=== PATIENT | male | born 1955 | race Caucasian/White ===

== ENCOUNTER 2017-04-18 02:59 | Inpatient (IN) | payer MEDICARE ==
[~2017-04-18] VITALS: Ht 175.3 cm; Wt 103.0 kg
[2017-04-18] MEDS ORDERED: AMIO100T4 PO (03:48)
[2017-04-18] MEDS ORDERED: WARF6TAB PO (03:50)
[2017-04-18] MEDS ORDERED: DAPT500V6 INJ (03:51)
[2017-04-18] MEDS ORDERED: [UNRECOGNIZED DRUG - OTHER] (03:51)
[2017-04-18] MEDS ORDERED: DILTIA (03:51)
[2017-04-18] MEDS ORDERED: FURO-93 PO (03:52)
[2017-04-18] MEDS ORDERED: HYDR12.53 PO (03:52)
[2017-04-18] MEDS ORDERED: LISI2.5T PO (03:52)
[2017-04-18] MEDS ORDERED: ALBU8.5H8 INH (03:54)
[2017-04-18] MEDS ORDERED: TEMA30CA6 PO (03:54)
[2017-04-18] MEDS ORDERED: RIFA300C3 PO (03:55)
[2017-04-18] MEDS ORDERED: ALPR-475 PO (03:55)
[2017-04-18] MEDS ORDERED: TIOT18CA INH (03:55)
[2017-04-18 04:10] LABS: BASOPHILS # (AUTO) 0.04 x10^3/uL (0-0.1); BASOPHILS % (AUTO) 0 % (0-1); EOSINOPHILS % (AUTO) 0 % (1-7); LYMPHOCYTES # (AUTO) 1.19 x10^3/uL (1-3.4); LYMPHOCYTES % (AUTO) 10 % (22-44); MD NO; MEAN CORPUSCULAR HEMOGLOBIN 35.2 pg (27.5-34.5); MEAN CORPUSCULAR HGB CONC 33.8 g/dL (33.2-36.2); MEAN CORPUSCULAR VOLUME 104.2 fL (81-97); MEAN PLATELET VOLUME 8.4 fL (7.4-10.4); MONOCYTES # (AUTO) 0.52 x10^3/uL (0.2-0.8); MONOCYTES % (AUTO) 4 % (2-9); NEUTROPHILS # (AUTO) 10.21 x10^3/uL (1.8-6.8); NEUTROPHILS % (AUTO) 85 % (42-75); PLATELET COUNT 255 x10^3/uL (130-400); RED BLOOD COUNT 3.81 x10^6/uL (4.38-5.82); RED CELL DISTRIBUTION WIDTH 15.7 % (9.4-14.8)
[2017-04-18 04:20] LABS: ALBUMIN 3.2 g/dL (3.4-5.0); ANION GAP 7 mmol/L (5-15); CALCIUM 7.4 mg/dL (8.5-10.1); CHLORIDE 100 mmol/L (98-107); CREATININE 2.21 mg/dL (0.7-1.3)
[2017-04-18 04:25] LABS: ALKALINE PHOSPHATASE 139 U/L (45-117); BILIRUBIN,TOTAL 3.5 mg/dL (0.2-1.0); TOTAL PROTEIN 7.1 g/dL (6.4-8.2)
[2017-04-18 04:29] LABS: TROPONIN I 0.717 ng/mL (0.000-0.045)
[2017-04-18 04:37] LABS: ALANINE AMINOTRANSFERASE 2215 U/L (12-78)
[2017-04-18 04:56] VITALS: BP 119/84
[2017-04-18] MEDS ORDERED: ALBUTEROL/IPRATROPIUM 2.5MG/0.5MG, 3 ML NPPB SCH (06:30)
[2017-04-18] MEDS ORDERED: ONDANSETRON 2MG/ML, 2ML IVPush PRN (06:30)
[2017-04-18] MEDS ORDERED: LABETALOL 5MG/ML, 20ML IVPush PRN (06:30)
[2017-04-18] MEDS ORDERED: SODIUM CHLORIDE 0.9% IVPB SCH (06:30)
[2017-04-18] MEDS ORDERED: POLYETHYLENE GLYCOL 17 GM PACKET PO PRN (06:30)
[2017-04-18] MEDS ORDERED: BISACODYL 10 MG SUPP PR PRN (06:30)
[2017-04-18] MEDS ORDERED: DAPTOMYCIN IVPB SCH (06:30)
[2017-04-18 07:22] VITALS: BP 121/82
[2017-04-18 07:28] LABS: FREE T4 (FREE THYROXINE) 1.84 ng/dL (0.76-1.46); THYROID STIMULATING HORMONE 0.248 mIU/L (0.358-3.740)
[2017-04-18] MEDS ORDERED: POTASSIUM CHLORIDE 10 MEQ TABLET.ER ONE (08:05)
[2017-04-18] MEDS: RIFAMPIN 300 MG CAPSULE PO SCH (08:21)
[2017-04-18] MEDS: FUROSEMIDE 20 MG/2 ML IV SCH ×2 (08:21→15:54)
[2017-04-18] MEDS: SENNA/DOCUSATE TABLET PO SCH (08:23)
[2017-04-18] MEDS: TEMAZEPAM 30 MG CAPSULE PO SCH (08:23)
[2017-04-18] MEDS: AMIODARONE 200 MG TABLET PO SCH ×3 (08:23→08:35)
[2017-04-18] MEDS: POTASSIUM CHLORIDE 20 MEQ TAB.ER.PRT PO SCH ×3 (08:23→20:49)
[2017-04-18 08:26] LABS: INTERNATIONAL NORMALIZED RATIO 1.87 (0.93-1.1); PROTHROMBIN TIME 19.2 Seconds (9.6-11.5)
[2017-04-18] MEDS ORDERED: IPRATROPIUM 0.5 MG/2.5 ML INHA HHN SCH (09:00)
[2017-04-18] MEDS ORDERED: LISINOPRIL 5 MG TABLET PO SCH (09:00)
[2017-04-18] MEDS ORDERED: DAPTOMYCIN 650 MG in SODIUM CHLORIDE 0.9% 100 ML IVPB SCH ×2 (09:00→10:53)
[2017-04-18 09:49] LABS: TROPONIN I 0.529 ng/mL (0.000-0.045)
[2017-04-18] MEDS: PIPERACILLIN/TAZO 2.25 GM in SODIUM CHLORIDE 0.9% 50 ML IV SCH ×3 (09:53→20:49)
[2017-04-18] MEDS: ALBUTEROL/IPRATROPIUM 2.5MG/0.5MG, 3 ML NPPB SCH ×2 (10:00→19:50)
[2017-04-18 10:07] LABS: MICROSCOPIC AUTO
[2017-04-18 10:13] LABS: CULTURE INDICATED? YES
[2017-04-18 14:13] VITALS: BP 126/76
[2017-04-18] MEDS: SODIUM CHLORIDE 0.9% 1,000 ML IV SCH (14:49)
[2017-04-18 16:05] LABS: ANION GAP 8 mmol/L (5-15); CALCIUM 7.8 mg/dL (8.5-10.1); CHLORIDE 95 mmol/L (98-107)
[2017-04-18 16:14] LABS: ALANINE AMINOTRANSFERASE 1662 U/L (12-78); ALKALINE PHOSPHATASE 126 U/L (45-117); BILIRUBIN,TOTAL 4.7 mg/dL (0.2-1.0); CREATININE 1.66 mg/dL (0.7-1.3); TOTAL PROTEIN 6.8 g/dL (6.4-8.2); TROPONIN I 0.442 ng/mL (0.000-0.045)
[2017-04-18] MEDS ORDERED: LORazepam 2 MG/ML, 1ML IV PRN ×5 (17:00)
[2017-04-18] MEDS ORDERED: LORazepam 0.5MG TABLET PO PRN (17:00)
[2017-04-18] MEDS ORDERED: LORazepam 1MG TABLET PO PRN ×4 (17:00)
[2017-04-18] MEDS ORDERED: WARFARIN 7.5 MG TABLET PO-COUM ONE (18:00)
[2017-04-18 19:00] VITALS: BP 102/73
[2017-04-18] MEDS ORDERED: ALBUTEROL SULFATE 2.5 MG/3 ML ONE (19:45)
[2017-04-18] MEDS: PIPERACILLIN/TAZO/PMX 4.5GM 100 ML IV SCH (23:00)
[2017-04-19 01:10] VITALS: BP 104/64
[2017-04-19] MEDS: SODIUM CHLORIDE 0.9% 1,000 ML IV SCH ×3 (03:00→16:49)
[2017-04-19] MEDS ORDERED: LEVOTHYROXINE 50 MCG TABLET PO SCH (06:00)
[2017-04-19 06:13] LABS: BASOPHILS # (AUTO) 0.03 x10^3/uL (0-0.1); BASOPHILS % (AUTO) 1 % (0-1); EOSINOPHILS # (AUTO) 0.04 x10^3/uL (0-0.4); EOSINOPHILS % (AUTO) 1 % (1-7); LYMPHOCYTES % (AUTO) 23 % (22-44); MD NO; MEAN CORPUSCULAR HEMOGLOBIN 34.7 pg (27.5-34.5); MEAN CORPUSCULAR HGB CONC 33.5 g/dL (33.2-36.2); MEAN CORPUSCULAR VOLUME 103.7 fL (81-97); MEAN PLATELET VOLUME 7.8 fL (7.4-10.4); MONOCYTES # (AUTO) 0.32 x10^3/uL (0.2-0.8); MONOCYTES % (AUTO) 5 % (2-9); NEUTROPHILS # (AUTO) 5.01 x10^3/uL (1.8-6.8); NEUTROPHILS % (AUTO) 72 % (42-75); PLATELET COUNT 211 x10^3/uL (130-400); RED BLOOD COUNT 3.83 x10^6/uL (4.38-5.82); RED CELL DISTRIBUTION WIDTH 15.7 % (9.4-14.8)
[2017-04-19 06:14] LABS: INTERNATIONAL NORMALIZED RATIO 1.56 (0.93-1.1); PROTHROMBIN TIME 16.1 Seconds (9.6-11.5)
[2017-04-19 06:21] LABS: ALBUMIN 2.8 g/dL (3.4-5.0); CALCIUM 8.1 mg/dL (8.5-10.1); CHLORIDE 97 mmol/L (98-107); GAMMA GLUTAMYL TRANSPEPTIDASE 162 U/L (15-85)
[2017-04-19 06:30] LABS: ALANINE AMINOTRANSFERASE 1227 U/L (12-78); ALKALINE PHOSPHATASE 106 U/L (45-117); ANION GAP 7 mmol/L (5-15); BILIRUBIN,TOTAL 3.3 mg/dL (0.2-1.0); CHOL/HDL RATIO 10.3; CHOLESTEROL, TOTAL 103 mg/dL (140-239); CREATININE 1.22 mg/dL (0.7-1.3); HDL CHOL % 10 % (26-37); HDL CHOLESTEROL (DIRECT) 10 mg/dL (40-60); LDL CHOLESTEROL,CALCULATED 66 mg/dL (54-169); TOTAL PROTEIN 6.3 g/dL (6.4-8.2); TRIGLYCERIDES 135 mg/dL (50-200); VLDL CHOLESTEROL 27 mg/dL (0-25)
[2017-04-19 06:31] LABS: LDL/HDL RATIO 6.6 (0.5-3.0)
[2017-04-19] MEDS: ALBUTEROL/IPRATROPIUM 2.5MG/0.5MG, 3 ML NPPB SCH ×2 (07:23→19:42)
[2017-04-19 08:09] VITALS: BP 115/77
[2017-04-19] MEDS: SENNA/DOCUSATE TABLET PO SCH (09:00)
[2017-04-19] MEDS: POTASSIUM CHLORIDE 20 MEQ TAB.ER.PRT PO SCH ×3 (09:42→17:45)
[2017-04-19] MEDS: TEMAZEPAM 30 MG CAPSULE PO SCH (09:42)
[2017-04-19] MEDS: AMIODARONE 200 MG TABLET PO SCH (09:42)
[2017-04-19] MEDS: PIPERACILLIN/TAZO/PMX 4.5GM 100 ML IV SCH ×2 (09:43→16:49)
[2017-04-19] MEDS: RIFAMPIN 300 MG CAPSULE PO SCH (09:43)
[2017-04-19 13:57] VITALS: BP 108/70
[2017-04-19] MEDS ORDERED: WARFARIN 10 MG TABLET PO-COUM ONE (18:00)
[2017-04-19 18:33] LABS: ANA SCREEN NEGATIVE (Negative); ANTI-NUCLEAR ANTIBODY PATTERN CYTOPLASMIC
[2017-04-19 19:05] VITALS: BP 121/78
[2017-04-20] MEDS: PIPERACILLIN/TAZO/PMX 4.5GM 100 ML IV SCH ×3 (00:53→18:10)
[2017-04-20 01:27] VITALS: BP 113/73
[2017-04-20 05:53] LABS: BASOPHILS # (AUTO) 0.04 x10^3/uL (0-0.1); BASOPHILS % (AUTO) 1 % (0-1); EOSINOPHILS # (AUTO) 0.17 x10^3/uL (0-0.4); EOSINOPHILS % (AUTO) 3 % (1-7); LYMPHOCYTES # (AUTO) 1.42 x10^3/uL (1-3.4); LYMPHOCYTES % (AUTO) 24 % (22-44); MD NO; MEAN CORPUSCULAR HEMOGLOBIN 34.9 pg (27.5-34.5); MEAN CORPUSCULAR HGB CONC 33.5 g/dL (33.2-36.2); MEAN CORPUSCULAR VOLUME 104.1 fL (81-97); MEAN PLATELET VOLUME 8.3 fL (7.4-10.4); MONOCYTES # (AUTO) 0.39 x10^3/uL (0.2-0.8); MONOCYTES % (AUTO) 7 % (2-9); NEUTROPHILS # (AUTO) 3.98 x10^3/uL (1.8-6.8); NEUTROPHILS % (AUTO) 66 % (42-75); PLATELET COUNT 181 x10^3/uL (130-400); RED BLOOD COUNT 3.62 x10^6/uL (4.38-5.82)
[2017-04-20 06:06] LABS: ANION GAP 4 mmol/L (5-15); CALCIUM 8.3 mg/dL (8.5-10.1); CHLORIDE 102 mmol/L (98-107)
[2017-04-20] MEDS: ALBUTEROL/IPRATROPIUM 2.5MG/0.5MG, 3 ML NPPB SCH ×2 (07:45→20:55)
[2017-04-20] MEDS ORDERED: REGADENOSON 0.4 MG/5 ML SYRINGE ONE (08:38)
[2017-04-20 08:40] LABS: INTERNATIONAL NORMALIZED RATIO 1.63 (0.93-1.1); PROTHROMBIN TIME 16.8 Seconds (9.6-11.5)
[2017-04-20 10:15] VITALS: BP 132/99
[2017-04-20 10:35] LABS: ALBUMIN 2.5 g/dL (3.4-5.0)
[2017-04-20 10:38] LABS: BILIRUBIN, DIRECT 1.4 mg/dL (0.1-0.2); BILIRUBIN,INDIRECT 0.8 mg/dL (0.0-2.0); BILIRUBIN,TOTAL 2.2 mg/dL (0.2-1.0); TOTAL PROTEIN 5.8 g/dL (6.4-8.2)
[2017-04-20] MEDS: AMIODARONE 200 MG TABLET PO SCH (10:38)
[2017-04-20] MEDS: SENNA/DOCUSATE TABLET PO SCH (10:38)
[2017-04-20] MEDS: RIFAMPIN 300 MG CAPSULE PO SCH (10:38)
[2017-04-20] MEDS: TEMAZEPAM 30 MG CAPSULE PO SCH ×2 (10:39→20:19)
[2017-04-20] MEDS ORDERED: MAALOX/HYOSCYAMINE/LIDOCAINE 45 ML BTL PO ONE (13:00)
[2017-04-20] MEDS: SUCRALFATE 1 GM/10 ML UDC PO SCH ×3 (13:33→20:20)
[2017-04-20] MEDS: PANTOPRAZOLE 40 MG IV IVPush SCH (13:34)
[2017-04-20] MEDS: ERGOCALCIFEROL 50,000 UNIT CAPSULE PO SCH (13:34)
[2017-04-20 15:23] VITALS: BP 145/104
[2017-04-20] MEDS ORDERED: MORPHINE SULFATE 4 MG/ML, 1ML ONE (15:28)
[2017-04-20] MEDS: morphine SULFATE 10 MG/ML, 1ML IVPush PRN ×3 (15:33→22:18)
[2017-04-20] MEDS ORDERED: WARFARIN 3 MG TABLET PO-COUM ONE (18:00)
[2017-04-20 18:53] VITALS: BP 134/95
[2017-04-21] MEDS: PIPERACILLIN/TAZO/PMX 4.5GM 100 ML IV SCH ×5 (00:49→23:15)
[2017-04-21] MEDS: PANTOPRAZOLE 40 MG IV IVPush SCH ×2 (00:49→13:35)
[2017-04-21 01:14] VITALS: BP 113/75
[2017-04-21] MEDS: morphine SULFATE 10 MG/ML, 1ML IVPush PRN ×6 (02:32→23:23)
[2017-04-21 06:06] LABS: INTERNATIONAL NORMALIZED RATIO 2.01 (0.93-1.1); PROTHROMBIN TIME 20.6 Seconds (9.6-11.5)
[2017-04-21 07:04] VITALS: BP 125/87
[2017-04-21] MEDS: SUCRALFATE 1 GM/10 ML UDC PO SCH ×4 (08:20→20:15)
[2017-04-21] MEDS: SENNA/DOCUSATE TABLET PO SCH (08:20)
[2017-04-21] MEDS: RIFAMPIN 300 MG CAPSULE PO SCH (08:20)
[2017-04-21] MEDS: AMIODARONE 200 MG TABLET PO SCH (08:20)
[2017-04-21 10:18] LABS: ALANINE AMINOTRANSFERASE 592 U/L (12-78); ALBUMIN 2.5 g/dL (3.4-5.0); ANION GAP 6 mmol/L (5-15); CALCIUM 8.3 mg/dL (8.5-10.1); CHLORIDE 103 mmol/L (98-107); CREATININE 1.05 mg/dL (0.7-1.3)
[2017-04-21] MEDS: ALBUTEROL/IPRATROPIUM 2.5MG/0.5MG, 3 ML NPPB SCH ×2 (10:18→21:00)
[2017-04-21 10:20] LABS: ALKALINE PHOSPHATASE 80 U/L (45-117); BILIRUBIN,TOTAL 1.6 mg/dL (0.2-1.0); TOTAL PROTEIN 5.7 g/dL (6.4-8.2)
[2017-04-21] MEDS ORDERED: MORPHINE SULFATE 4 MG/ML, 1ML ONE (15:54)
[2017-04-21 16:56] VITALS: BP 141/94
[2017-04-21] MEDS ORDERED: WARFARIN 10 MG TABLET PO-COUM ONE (18:00)
[2017-04-21 18:46] VITALS: BP 132/79
[2017-04-21] MEDS: NYSTATIN 500,000 UNITS/5 ML UDC PO SCH (20:15)
[2017-04-21] MEDS: TEMAZEPAM 30 MG CAPSULE PO SCH (20:16)
[2017-04-22 00:49] VITALS: BP 136/87
[2017-04-22] MEDS: PANTOPRAZOLE 40 MG IV IVPush SCH ×2 (02:21→12:50)
[2017-04-22] MEDS: morphine SULFATE 10 MG/ML, 1ML IVPush PRN ×7 (02:21→21:10)
[2017-04-22] MEDS: PIPERACILLIN/TAZO/PMX 4.5GM 100 ML IV SCH ×4 (05:03→23:20)
[2017-04-22] MEDS: NYSTATIN 500,000 UNITS/5 ML UDC PO SCH ×4 (05:03→21:10)
[2017-04-22 05:43] LABS: INTERNATIONAL NORMALIZED RATIO 2.57 (0.93-1.1); PROTHROMBIN TIME 26.2 Seconds (9.6-11.5)
[2017-04-22 05:46] LABS: BASOPHILS # (AUTO) 0.04 x10^3/uL (0-0.1); BASOPHILS % (AUTO) 1 % (0-1); EOSINOPHILS # (AUTO) 0.28 x10^3/uL (0-0.4); EOSINOPHILS % (AUTO) 5 % (1-7); LYMPHOCYTES # (AUTO) 1.35 x10^3/uL (1-3.4); LYMPHOCYTES % (AUTO) 25 % (22-44); MD NO; MEAN CORPUSCULAR HEMOGLOBIN 34.7 pg (27.5-34.5); MEAN CORPUSCULAR HGB CONC 33.6 g/dL (33.2-36.2); MEAN CORPUSCULAR VOLUME 103.4 fL (81-97); MEAN PLATELET VOLUME 8.6 fL (7.4-10.4); MONOCYTES # (AUTO) 0.43 x10^3/uL (0.2-0.8); MONOCYTES % (AUTO) 8 % (2-9); NEUTROPHILS # (AUTO) 3.39 x10^3/uL (1.8-6.8); NEUTROPHILS % (AUTO) 62 % (42-75); PLATELET COUNT 173 x10^3/uL (130-400); RED BLOOD COUNT 3.86 x10^6/uL (4.38-5.82); RED CELL DISTRIBUTION WIDTH 15.8 % (9.4-14.8)
[2017-04-22 05:55] LABS: CHLORIDE 103 mmol/L (98-107)
[2017-04-22 06:18] LABS: ALANINE AMINOTRANSFERASE 486 U/L (12-78); ALBUMIN 2.8 g/dL (3.4-5.0); ALKALINE PHOSPHATASE 85 U/L (45-117); ANION GAP 10 mmol/L (5-15); BILIRUBIN,TOTAL 1.6 mg/dL (0.2-1.0); CALCIUM 8.6 mg/dL (8.5-10.1); TOTAL PROTEIN 6.6 g/dL (6.4-8.2)
[2017-04-22 08:30] VITALS: BP 135/96
[2017-04-22] MEDS: SENNA/DOCUSATE TABLET PO SCH (09:00)
[2017-04-22] MEDS: RIFAMPIN 300 MG CAPSULE PO SCH (09:12)
[2017-04-22] MEDS: AMIODARONE 200 MG TABLET PO SCH (09:12)
[2017-04-22] MEDS: SUCRALFATE 1 GM/10 ML UDC PO SCH ×4 (09:12→21:10)
[2017-04-22] MEDS: ALBUTEROL/IPRATROPIUM 2.5MG/0.5MG, 3 ML NPPB SCH ×2 (09:24→21:00)
[2017-04-22 14:30] VITALS: BP 146/90
[2017-04-22] MEDS ORDERED: PHYTONADIONE 10 MG/ML, 1ML SQ ONE (14:30)
[2017-04-22] MEDS ORDERED: PHYTONADIONE 10 MG/ML, 1ML IM ONE (14:30)
[2017-04-22] MEDS ORDERED: WARFARIN 7.5 MG TABLET PO-COUM ONE (18:00)
[2017-04-22 19:43] VITALS: BP 129/86
[2017-04-22] MEDS: PANTOPROZOLE 40MG TABLET PO SCH (21:10)
[2017-04-22] MEDS: TEMAZEPAM 30 MG CAPSULE PO SCH (21:10)
[2017-04-23] MEDS: morphine SULFATE 10 MG/ML, 1ML IVPush PRN ×7 (00:17→22:06)
[2017-04-23 01:28] VITALS: BP 138/81
[2017-04-23] MEDS: PIPERACILLIN/TAZO/PMX 4.5GM 100 ML IV SCH ×3 (04:58→16:55)
[2017-04-23] MEDS: NYSTATIN 500,000 UNITS/5 ML UDC PO SCH ×4 (05:00→22:05)
[2017-04-23 05:30] LABS: CHLORIDE 107 mmol/L (98-107)
[2017-04-23 05:38] LABS: ALANINE AMINOTRANSFERASE 372 U/L (12-78); ALBUMIN 2.9 g/dL (3.4-5.0); ALKALINE PHOSPHATASE 82 U/L (45-117); ANION GAP 8 mmol/L (5-15); BILIRUBIN,TOTAL 2.3 mg/dL (0.2-1.0); CALCIUM 8.4 mg/dL (8.5-10.1); CREATININE 0.97 mg/dL (0.7-1.3); TOTAL PROTEIN 6.7 g/dL (6.4-8.2)
[2017-04-23 05:41] LABS: INTERNATIONAL NORMALIZED RATIO 1.61 (0.93-1.1); PROTHROMBIN TIME 16.6 Seconds (9.6-11.5)
[2017-04-23] MEDS: SUCRALFATE 1 GM/10 ML UDC PO SCH ×4 (07:00→22:05)
[2017-04-23 07:04] VITALS: BP 139/101
[2017-04-23] MEDS: ALBUTEROL/IPRATROPIUM 2.5MG/0.5MG, 3 ML NPPB SCH ×2 (08:12→20:44)
[2017-04-23] MEDS: PANTOPROZOLE 40MG TABLET PO SCH ×2 (09:00→22:06)
[2017-04-23] MEDS: AMIODARONE 200 MG TABLET PO SCH (09:00)
[2017-04-23] MEDS: RIFAMPIN 300 MG CAPSULE PO SCH (09:00)
[2017-04-23] MEDS: SENNA/DOCUSATE TABLET PO SCH (09:00)
[2017-04-23] MEDS ORDERED: maalox/diphenh/lido/sucralfate 5 ML PO PRN (11:30)
[2017-04-23 14:30] VITALS: BP 120/69
[2017-04-23 19:53] VITALS: BP 132/90
[2017-04-23] MEDS: GUAIFENESIN/DM 200-20MG, 10ML UDC PO PRN (22:05)
[2017-04-23] MEDS: TEMAZEPAM 30 MG CAPSULE PO SCH (22:06)
[2017-04-24] MEDS: PIPERACILLIN/TAZO/PMX 4.5GM 100 ML IV SCH ×5 (00:04→23:27)
[2017-04-24 01:24] VITALS: BP 144/94
[2017-04-24] MEDS: morphine SULFATE 10 MG/ML, 1ML IVPush PRN ×6 (02:16→21:37)
[2017-04-24 05:00] LABS: INTERNATIONAL NORMALIZED RATIO 1.16 (0.93-1.1)
[2017-04-24] MEDS: NYSTATIN 500,000 UNITS/5 ML UDC PO SCH ×4 (05:58→20:00)
[2017-04-24 06:43] VITALS: BP 124/98
[2017-04-24] MEDS ORDERED: MIDAZOLAM 1 MG/ML, 2ML ONE (08:38)
[2017-04-24] MEDS ORDERED: PROPOFOL 50 ML ONE (08:38)
[2017-04-24] MEDS ORDERED: KETAMINE 10 MG/ML, 20ML ONE (08:38)
[2017-04-24] MEDS ORDERED: FENTANYL PF 100 MCG/2ML ONE ×2 (08:38→09:24)
[2017-04-24] MEDS: SENNA/DOCUSATE TABLET PO SCH (09:00)
[2017-04-24] MEDS: FENTANYL PF 100 MCG/2ML IV PRN ×2 (09:25→09:30)
[2017-04-24] MEDS ORDERED: hydrALAzine 20 MG/ML, 1ML IV PRN (09:30)
[2017-04-24] MEDS ORDERED: LORazepam 2 MG/ML, 1ML IVPush PRN (09:30)
[2017-04-24] MEDS ORDERED: PROMETHAZINE 25 MG/ML, 1ML IV PRN (09:30)
[2017-04-24] MEDS ORDERED: OXYcodone 5 MG/5 ML ORAL.SOL UDC PO PRN (09:30)
[2017-04-24] MEDS ORDERED: MEPERIDINE/PF 25MG/0.5ML IVPush PRN (09:30)
[2017-04-24] MEDS ORDERED: ONDANSETRON 2MG/ML, 2ML IVPush PRN (09:30)
[2017-04-24] MEDS ORDERED: LABETALOL 5MG/ML, 20ML IV PRN (09:30)
[2017-04-24] MEDS: ALBUTEROL/IPRATROPIUM 2.5MG/0.5MG, 3 ML NPPB SCH ×2 (09:30→19:45)
[2017-04-24] MEDS ORDERED: HYDROmorphone 2 MG/ML, 1ML ONE (09:32)
[2017-04-24] MEDS: HYDROmorphone 1 MG/ML, 1ML IV PRN ×2 (09:34→09:40)
[2017-04-24] MEDS: SUCRALFATE 1 GM/10 ML UDC PO SCH ×4 (11:29→20:00)
[2017-04-24] MEDS: AMIODARONE 200 MG TABLET PO SCH (11:29)
[2017-04-24] MEDS: RIFAMPIN 300 MG CAPSULE PO SCH (11:30)
[2017-04-24] MEDS: PANTOPROZOLE 40MG TABLET PO SCH ×2 (11:43→20:01)
[2017-04-24 12:05] VITALS: BP 149/96
[2017-04-24] MEDS: GUAIFENESIN/DM 200-20MG, 10ML UDC PO PRN ×2 (12:53→20:00)
[2017-04-24 19:29] VITALS: BP_SYST 149; BP_SYST 157; BP_DIAS 109; BP_DIAS 112
[2017-04-24] MEDS: TEMAZEPAM 30 MG CAPSULE PO SCH (20:01)
[2017-04-25] MEDS: morphine SULFATE 10 MG/ML, 1ML IVPush PRN ×8 (01:20→23:35)
[2017-04-25 01:28] VITALS: BP 130/101
[2017-04-25 05:21] LABS: BASOPHILS # (AUTO) 0.07 x10^3/uL (0-0.1); BASOPHILS % (AUTO) 1 % (0-1); EOSINOPHILS # (AUTO) 0.27 x10^3/uL (0-0.4); EOSINOPHILS % (AUTO) 3 % (1-7); LYMPHOCYTES # (AUTO) 1.57 x10^3/uL (1-3.4); LYMPHOCYTES % (AUTO) 20 % (22-44); MD NO; MEAN CORPUSCULAR HEMOGLOBIN 35.3 pg (27.5-34.5); MEAN CORPUSCULAR VOLUME 103.7 fL (81-97); MEAN PLATELET VOLUME 9.3 fL (7.4-10.4); MONOCYTES # (AUTO) 0.61 x10^3/uL (0.2-0.8); MONOCYTES % (AUTO) 8 % (2-9); NEUTROPHILS # (AUTO) 5.51 x10^3/uL (1.8-6.8); NEUTROPHILS % (AUTO) 69 % (42-75); PLATELET COUNT 204 x10^3/uL (130-400); RED CELL DISTRIBUTION WIDTH 15.4 % (9.4-14.8)
[2017-04-25 05:21] LABS: CHLORIDE 108 mmol/L (98-107)
[2017-04-25 05:27] LABS: ALANINE AMINOTRANSFERASE 228 U/L (12-78); ALBUMIN 2.9 g/dL (3.4-5.0); ALKALINE PHOSPHATASE 80 U/L (45-117); ANION GAP 8 mmol/L (5-15); CALCIUM 8.4 mg/dL (8.5-10.1); CREATININE 1.01 mg/dL (0.7-1.3); TOTAL PROTEIN 6.8 g/dL (6.4-8.2)
[2017-04-25 05:45] LABS: INTERNATIONAL NORMALIZED RATIO 1.1 (0.93-1.1); PROTHROMBIN TIME 11.4 Seconds (9.6-11.5)
[2017-04-25] MEDS: NYSTATIN 500,000 UNITS/5 ML UDC PO SCH ×4 (06:20→20:23)
[2017-04-25] MEDS: GUAIFENESIN/DM 200-20MG, 10ML UDC PO PRN ×2 (06:20→20:23)
[2017-04-25] MEDS: PIPERACILLIN/TAZO/PMX 4.5GM 100 ML IV SCH ×4 (06:20→23:35)
[2017-04-25] MEDS: ALBUTEROL/IPRATROPIUM 2.5MG/0.5MG, 3 ML NPPB SCH ×2 (07:25→19:42)
[2017-04-25 07:50] VITALS: BP 130/92
[2017-04-25] MEDS: SUCRALFATE 1 GM/10 ML UDC PO SCH ×4 (07:57→20:23)
[2017-04-25] MEDS: PANTOPROZOLE 40MG TABLET PO SCH ×2 (07:58→20:25)
[2017-04-25] MEDS: AMIODARONE 200 MG TABLET PO SCH (07:58)
[2017-04-25] MEDS: RIFAMPIN 300 MG CAPSULE PO SCH (07:58)
[2017-04-25] MEDS: SENNA/DOCUSATE TABLET PO SCH (07:59)
[2017-04-25] MEDS: LIDOCAINE 2% VISCOUS 15 ML UDC MM PRN ×2 (11:00→17:14)
[2017-04-25 13:03] VITALS: BP 127/96
[2017-04-25] MEDS ORDERED: WARFARIN 7.5 MG TABLET PO-COUM ONE (18:00)
[2017-04-25 20:21] VITALS: BP 155/99
[2017-04-25] MEDS: TEMAZEPAM 30 MG CAPSULE PO SCH (20:24)
[2017-04-26] VITALS (10 sets, daily range): BP systolic 140–165; BP diastolic 92–116
[2017-04-26] MEDS: morphine SULFATE 10 MG/ML, 1ML IVPush PRN ×2 (03:29→06:33)
[2017-04-26] MEDS: hydrALAzine 20 MG/ML, 1ML IVPush PRN ×3 (03:37→21:01)
[2017-04-26 05:39] LABS: INTERNATIONAL NORMALIZED RATIO 1.1 (0.93-1.1); PROTHROMBIN TIME 11.4 Seconds (9.6-11.5)
[2017-04-26] MEDS: PIPERACILLIN/TAZO/PMX 4.5GM 100 ML IV SCH (05:42)
[2017-04-26] MEDS: SUCRALFATE 1 GM/10 ML UDC PO SCH ×4 (06:33→20:59)
[2017-04-26] MEDS: NYSTATIN 500,000 UNITS/5 ML UDC PO SCH ×4 (06:33→20:59)
[2017-04-26] MEDS: LIDOCAINE 2% VISCOUS 15 ML UDC MM PRN (06:39)
[2017-04-26] MEDS: SENNA/DOCUSATE TABLET PO SCH (08:18)
[2017-04-26] MEDS: RIFAMPIN 300 MG CAPSULE PO SCH (08:23)
[2017-04-26] MEDS: PANTOPROZOLE 40MG TABLET PO SCH ×2 (08:23→20:59)
[2017-04-26] MEDS: AMIODARONE 200 MG TABLET PO SCH (08:23)
[2017-04-26] MEDS: ALBUTEROL/IPRATROPIUM 2.5MG/0.5MG, 3 ML NPPB SCH (09:00)
[2017-04-26] MEDS ORDERED: PIPERACILLIN/TAZO/PMX 4.5GM 100 ML IV SCH (11:00)
[2017-04-26] MEDS: WARFARIN MODERAT DOSE PROTOCOL XX SCH (12:00)
[2017-04-26] MEDS ORDERED: SUCR1ORA5 PO (13:54)
[2017-04-26] MEDS ORDERED: LIDO15SO3 MM (13:54)
[2017-04-26] MEDS ORDERED: PANT40TA5 PO (13:54)
[2017-04-26] MEDS: ACETAMINOPHEN 325 MG TABLET PO PRN ×2 (15:18→23:06)
[2017-04-26] MEDS ORDERED: WARFARIN 7.5 MG TABLET PO-COUM ONE (18:00)
[2017-04-26] MEDS: TEMAZEPAM 30 MG CAPSULE PO SCH (20:59)
[2017-04-26] MEDS ORDERED: ALBUTEROL/IPRATROPIUM 2.5MG/0.5MG, 3 ML NPPB PRN (21:00)
[2017-04-27 02:21] VITALS: BP 137/93
[2017-04-27] MEDS: ACETAMINOPHEN 325 MG TABLET PO PRN (05:15)
[2017-04-27] MEDS: NYSTATIN 500,000 UNITS/5 ML UDC PO SCH ×2 (05:15→11:08)
[2017-04-27 06:02] LABS: INTERNATIONAL NORMALIZED RATIO 1.1 (0.93-1.1); PROTHROMBIN TIME 11.4 Seconds (9.6-11.5)
[2017-04-27] MEDS: SENNA/DOCUSATE TABLET PO SCH (09:00)
[2017-04-27] MEDS: SUCRALFATE 1 GM/10 ML UDC PO SCH ×2 (09:21→11:08)
[2017-04-27] MEDS: PANTOPROZOLE 40MG TABLET PO SCH (09:22)
[2017-04-27] MEDS: RIFAMPIN 300 MG CAPSULE PO SCH (09:22)
[2017-04-27 09:23] VITALS: BP 138/96
[2017-04-27] MEDS: AMIODARONE 200 MG TABLET PO SCH (09:23)
[2017-04-27 10:55] VITALS: BP 154/102
[2017-04-27] MEDS: hydrALAzine 20 MG/ML, 1ML IVPush PRN (11:08)
[2017-04-27] MEDS ORDERED: WARFARIN 3 MG TABLET PO-COUM ONE (11:45)
[2017-04-27] MEDS: ERGOCALCIFEROL 50,000 UNIT CAPSULE PO SCH (11:51)
[2017-04-27 11:53] VITALS: BP 155/100
[2017-04-27] MEDS: WARFARIN MODERAT DOSE PROTOCOL XX SCH (12:00)
[2017-04-27 12:08] VITALS: BP 153/92
== END 2017-04-27 12:24 | disposition home or self-care (01) | DRG 871 ==
LOC: ED 03:22 → EDIP 04:18 → 4WST 04:55
PROVIDERS: ADMIT Internal Medicine; ATTEND Internal Medicine
PROC: 0DB58ZX Excision of Esophagus, Via Natural or Artificial Opening Endoscopic, Diagnostic (ICD-10-PCS; principal; 2017-04-24 09:00)
DX: A41.9 Sepsis, unspecified organism (principal); G93.41 Metabolic encephalopathy; J96.20 Acute and chronic respiratory failure, unspecified whether with hypoxia or hypercapnia; N17.0 Acute kidney failure with tubular necrosis; I21.A1 Myocardial infarction type 2; E43 Unspecified severe protein-calorie malnutrition; D68.69 Other thrombophilia; R13.10 Dysphagia, unspecified; I13.0 Hypertensive heart and chronic kidney disease with heart failure and stage 1 through stage 4 chronic kidney disease, or unspecified chronic kidney disease; B17.9 Acute viral hepatitis, unspecified; N39.0 Urinary tract infection, site not specified; I50.9 Heart failure, unspecified; E86.1 Hypovolemia; N18.9 Chronic kidney disease, unspecified; J44.9 Chronic obstructive pulmonary disease, unspecified; D53.9 Nutritional anemia, unspecified; D75.89 Other specified diseases of blood and blood-forming organs; E87.6 Hypokalemia; E05.90 Thyrotoxicosis, unspecified without thyrotoxic crisis or storm; G47.33 Obstructive sleep apnea (adult) (pediatric); I48.0 Paroxysmal atrial fibrillation; K20.9 Esophagitis, unspecified; K76.0 Fatty (change of) liver, not elsewhere classified; Z79.01 Long term (current) use of anticoagulants; Z87.891 Personal history of nicotine dependence; Z99.81 Dependence on supplemental oxygen; Z68.33 Body mass index [BMI] 33.0-33.9, adult; Z88.8 Allergy status to other drugs, medicaments and biological substances; B19.20 Unspecified viral hepatitis C without hepatic coma
CPT/HCPCS: 36415; 70551; 71045; 74230; 76700; 76770; 78452; 80048; 80053; 80061; 80076; 81001; 82140; 82306; 82607; 82977; 83036; 83516; 83520; 83615; 83690; 83735; 84100; 84439; 84443; 84484; 85025; 85610; 86038; 86705; 86706; 86709; 86803; 87040; 87070; 87086; 87205; 87340; 87521; 87522; 88305; 88312; 93005; 93017; 93306; 94640; 99285; J0878; J1170; J2250; J2543; J2704; J2785; J3010; J3430; J7620; A9502; C9113; C9898; J0360; J1940; J2270; J7030